=== PATIENT | male | born 1945 | race Caucasian/White ===

== ENCOUNTER 2018-10-05 15:17 | Observation (INO) | payer MEDICARE ==
[2018-10-05] MEDS ORDERED: Mag-Al 1200 mg/1200 mg/30 ML UDCUP PO PRN (16:09)
[2018-10-05] MEDS ORDERED: HYDROcodone/Acetaminophen 5/325 mg Tablet PO PRN ×2 (16:09)
[2018-10-05] MEDS ORDERED: Acetaminophen 500 MG TAB PO PRN (16:09)
[2018-10-05] MEDS ORDERED: Ondansetron PF 4 MG/2 ML Vial IVP PRN (16:09)
[2018-10-05] MEDS ORDERED: Morphine 2 MG/ML SYRINGE SLOW IVP PRN (16:09)
[2018-10-05] MEDS ORDERED: diphenhydrAMINE 25 MG CAP PO PRN (16:09)
[2018-10-05] MEDS ORDERED: Morphine 4 MG/ML VIAL SLOW IVP PRN (16:09)
[2018-10-05] MEDS ORDERED: hydrALAZINE 20 MG/ML VIAL SLOW IVP PRN (16:09)
[2018-10-05] MEDS ORDERED: Docusate 100 MG CAP PO PRN (16:09)
[2018-10-05 16:22] VITALS: BMI 27.6
[2018-10-05] MEDS: cefTRIAXone\\ROCEPHIN 1 GM in Sodium Chloride 0.9% 100 ML IVPB SCH (16:54)
[2018-10-05] MEDS: Sodium Chloride 0.9% 1,000 ML IV SCH (16:54)
[2018-10-05] MEDS ORDERED: Lisinopril 5 MG TAB PO SCH (21:00)
[2018-10-05] MEDS ORDERED: Atorvastatin Calcium 40 MG TAB PO SCH (21:00)
--- NOTE | 2018-10-06 01:34 | HP ---
ADMITTING DIAGNOSES: 1. Right ureteral stone. 2. Urinary tract infection. CHIEF COMPLAINT: "I have a kidney stone." HISTORY OF PRESENT ILLNESS: Mr. Polo is a 73-year-old white male with a history of right lower quadrant and right flank pain, starting approximately 1 to 2 days ago. He initially went to his primary care physician, who ordered labs demonstrating what looked like urinary tract infection. Given the patient's symptoms, he subsequently underwent a CT scan, which demonstrated an 8 mm proximal right ureteral stone with hydronephrosis and perinephric stranding. Due to the concern of a possible urinary tract infection in the presence of ureteral stone, he was sent to see me at the Urology office, where I visited with the patient. There, the patient did not report any fevers or chills, nausea or vomiting, but he still has intermittent flank pain, which is relatively severe, rating at 7 to 8/10 at the nighttime, and currently at 1 or 2/10. He does have a history of radical prostatectomy for prostate cancer in the past approximately 10 years ago. He does not have history of kidney stones, UTIs, or hematuria. ALLERGIES: NONE. CURRENT MEDICATIONS: 1. Aspirin. 2. Atorvastatin. 3. Metoprolol. 4. Lisinopril. 5. Spironolactone. PAST MEDICAL HISTORY: 1. Cataracts. 2. Prostate cancer. 3. Hepatitis. 4. Mitral valve prolapse. 5. Arthritis. PAST SURGICAL HISTORY: 1. Cataract surgery. 2. Radical prostatectomy in 2008. 3. Appendectomy. 4. Tonsillectomy. 5. Mitral heart valve replacement. 6. Hip replacement. FAMILY HISTORY: Significant for mother and father, who have had unspecified types of cancer and a family history of hypertension, but nothing for nephrolithiasis. SOCIAL HISTORY: The patient does not smoke. He denies alcohol abuse or illicit drug use. He is . REVIEW OF SYSTEMS: A 12-point review of systems was reviewed and otherwise negative other than what was commented on the HPI, specifically the right flank and right lower quadrant pain. PHYSICAL EXAMINATION: VITAL SIGNS: Temperature 97.4, pulse 89, respirations 18, blood pressure 114/72, and saturation 97% on room air. GENERAL: No apparent distress, communicating, alert, appears stated age. HEENT: Normocephalic, atraumatic. Pupils are symmetric and round. Sclerae nonicteric. Extraocular movements intact. Trachea midline. Moist mucous membranes. CARDIOVASCULAR: Regular rate and rhythm. Normal S1 and S2. Mild systolic murmur. CHEST: No increased work of breathing. Symmetric expansion of the lungs, clear anteriorly. ABDOMEN: Soft, nontender, and nondistended. No positive bowel sounds. No guarding or rebound at the right lower quadrant. No organomegaly. Mild right CVA tenderness. : Deferred at this time. EXTREMITIES: No clubbing, cyanosis, or edema. MUSCULOSKELETAL: No joint deformities or joint erythema noted. Full range of motion. NEUROLOGIC: Cranial nerves 2 through 12 grossly intact. No focal or sensory motor deficits identified. SKIN: Warm and dry. Good turgor. No rashes or lesions. PSYCHIATRIC: Alert and oriented x3. Appropriate mood and affect. IMAGING: CT from October 05 demonstrates a partially obstructing right proximal ureteral stone, measuring 8 mm with mild to moderate right hydronephrosis and hydroureter with perinephric and periureteral stranding. There is a Bosniak 2 left renal cyst, status post prostatectomy with diverticulosis and vascular calcifications throughout. LABORATORY DATA: Reviewed from patient's primary care doctor. Creatinine is currently 1.37, sodium of 138, white count is 11.5, hemoglobin of 14.1, platelet count of 178. Urinalysis demonstrates 1+ bacteria, 1+ leukocyte esterase, 10 to 15 white cells, 20 to 30 red cells. ASSESSMENT AND PLAN: A 73-year-old white male with a possible urinary tract infection and the presence of a right ureteral stone. The patient has been admitted to the hospital after discussion with the patient previously in the office to perform a cystoscopy with right ureteral stent. The patient has no evidence of sepsis or significant pyelonephritis at this time. Therefore, this case is deemed urgent but not emergent. I will plan to treat the patient with IV ceftriaxone for now, make him n.p.o. after midnight, and take him to the operating room tomorrow for a cystoscopy and right ureteral stent placement. We will then await cultures and plan for 7 days of antibiotic treatment, at which point, we will then return back to the operating room for definitive treatment with either ESWL or ureteroscopy to remove the stone. This can be handled on an outpatient basis subsequently. I have discussed the surgical case with the patient and he has agreed to proceed forward. Job ID: [id number]
[2018-10-06 05:53] LABS: #Basophils 0.1 thou/uL (0.0-0.2); #Eosinphils 0.3 thou/uL (0.0-0.7); #Lymphocytes 2.2 thou/uL (1.20-3.40); #Monocytes 0.9 thou/uL (0.11-0.59); #Neutrophils 4.6 thou/uL (1.40-6.50); %Eosinophils 3.2 % (0.0-10.0); %Lymphocytes 27.1 % (21.0-51.0); %Monocytes 11.1 % (0.0-10.0); %Neutrophils 57.6 % (42.0-75.0); Hemoglobin 11.7 g/dL (14.0-18.0); Mean Corpuscular HGB CONC 32.6 g/dL (32.0-36.0); Mean Corpuscular Hemoglobin 30.6 pg (27.0-31.0); Mean Corpuscular Volume 93.6 fL (78.0-98.0); Mean Platelet Volume 8.4 fL (7.4-10.4); Platelet Count 175 thou/uL (130-400); RBC Distribution Width 12.1 % (11.5-14.5); Red Blood Cell (RBC) Count 3.84 mill/uL (4.70-6.10)
[2018-10-06] MEDS ORDERED: Spironolactone 25 MG TAB PO SCH (08:00)
[2018-10-06] MEDS: Sodium Chloride 0.9% 1,000 ML IV SCH (08:22)
[2018-10-06] MEDS ORDERED: Lisinopril 5 MG TAB PO SCH (09:00)
[2018-10-06] MEDS ORDERED: Aspirin 81 mg Enteric Coated Tablet PO SCH (09:00)
[2018-10-06] MEDS ORDERED: Lidocaine 1% PF 5 ML VIAL ONE (10:25)
[2018-10-06] MEDS ORDERED: PROPOFOL 200 MG/20 ML VIAL ONE (10:25)
[2018-10-06] MEDS ORDERED: Iothalamate Meglumine 60% 50 ML VIAL FS ONE (14:00)
--- NOTE | 2018-10-06 15:14 | RAD ---
EXAM: XR IVP Retrograde PROVIDED CLINICAL HISTORY: Abdominal pain and hematuria. CT examination demonstrates a proximal right ureteral calculus COMPARISON: CT abdomen and pelvis on 10/05/2018 FINDINGS: Single fluoroscopic image from right retrograde urogram submitted for interpretation. Image demonstra chong a double pigtail right ureteral stent in place with proximal portion of the stent overlying the expected location of the right renal collecting system and distal portion overlies expected location urinary bladder. There is a calcification seen adjacent to the proximal ureteral stent at the level of the inferior endplate of the L3 vertebral body likely related to the right ureteral calculus. Surgical clips overlie the pelvis. Right total hip prosthesis is noted in place. Correlation with intraoperative findings is recommended. IMPRESSION: Right renal stent in place with the right ureteral calculus seen at the level of the inferior endplat e L3 vertebral body.
[2018-10-06] MEDS ORDERED: Ondansetron HCl/PF 4 MG/2 ML Vial IVP PRN (15:15)
[2018-10-06 16:48] VITALS: BP 115/75; TEMP 98.9
[2018-10-06] MEDS: cefTRIAXone\\ROCEPHIN 1 GM in Sodium Chloride 0.9% 100 ML IVPB SCH (17:21)
--- NOTE | 2018-10-06 21:31 | OP ---
DATE OF PROCEDURE: 10/06/2018 SERVICE: Urology. PREOPERATIVE DIAGNOSIS: Right ureteral stone and possible urinary tract infection. POSTOPERATIVE DIAGNOSIS: Right ureteral stone and possible urinary tract infection. PROCEDURE PERFORMED: Cystoscopy, right ureteral stent placement. INDICATION FOR PROCEDURE: Mr. Polo is a 73-year-old white male with a history of mitral valve replacement, who comes in with a possible urinary tract infection and a right ureteral stone. Out of concern for sepsis and possible endocarditis, I have elected to go ahead and place a stent. He was admitted to the hospital yesterday, placed on IV antibiotics. He has remained afebrile and his white count is normal today. He is being brought to the operating room for cysto and stent placement after discussion of options, risks, and benefits. DESCRIPTION OF PROCEDURE: After identification of armband and verification of consent, the patient was brought back to the operating room, where he underwent general anesthesia and LMA. He was then placed in dorsal lithotomy position and prepped and draped in usual sterile fashion. After appropriate time-out, a lubricated 22-Austrian rigid cystoscope was introduced per urethra into the bladder. The prostate was surgically absent as expected after his prostatectomy. Both ureters were in their orthotopic location. The right ureter was cannulated with a 0.035 Sensor wire up to the level of renal pelvis. The stone was visible and the wire was able to be navigated by the stone. A 6 x 26 double-J stent was advanced over the Sensor wire up to the level of renal pelvis past the stone. The wire was removed leaving a good curl in the kidney and a good curl in the bladder. The cystoscope was used to drain the bladder and then removed. Of note, there was a pedunculated mass just near the trigone, which may be a remnant prostate tissue or potentially buried suture material that has formed a granuloma. In either case, the patient has been asymptomatic from this, so I do not think anything further needs to be done. It is smooth and round and not indicative of a malignant process. The patient was then awakened and taken to PACU for recovery in stable condition. COMPLICATIONS: None. ESTIMATED BLOOD LOSS: Minimal. RETAINED TUBES AND DRAINS: A 6 x 26 double-J stent on the right. SPECIMENS: None. DISPOSITION: The patient will be discharged home on 7 days of antibiotics. We will then schedule him for either an ESWL or ureteroscopy based on his preference. Job ID: [id number]
== END 2018-10-06 17:00 | disposition home or self-care (01) ==
LOC: SURG B 15:45
PROVIDERS: ADMIT Urology; ATTEND Urology
PROC: 0T9680Z Drainage of Right Ureter with Drainage Device, Via Natural or Artificial Opening Endoscopic (ICD-10-PCS; principal; 2018-10-05)
DX: N20.1 Calculus of ureter (principal); N39.0 Urinary tract infection, site not specified; M19.90 Unspecified osteoarthritis, unspecified site; Z79.82 Long term (current) use of aspirin; Z79.899 Other long term (current) drug therapy; Z95.4 Presence of other heart-valve replacement
CPT/HCPCS: 52332; 74178; 74420; 82565; 85025; 87086; 96361 ×2; 96365; 96375; G0378; G0379; 36415; 99213; G0463; J0696; J2001; J2270; J2704; J3490; Q9961; Q9967

== ENCOUNTER 2018-10-14 11:02 | Day surgery (SDC) | payer MEDICARE ==
[2018-10-13 15:16] VITALS: BMI 27.8
[2018-10-14] MEDS ORDERED: Sodium Chloride 0.9% 100 ML ONE (11:47)
[2018-10-14] MEDS ORDERED: cefTRIAXone\\ROCEPHIN 1 GM VIAL ONE (11:47)
[2018-10-14] MEDS ORDERED: Iothalamate Meglumine 60% 50 ML VIAL FS ONE (12:27)
[2018-10-14] MEDS ORDERED: B & O ONE (12:29)
[2018-10-14] MEDS ORDERED: Fentanyl 100 MCG/2 ML VIAL ONE (13:08)
[2018-10-14] MEDS ORDERED: Glycopyrrolate 0.2 MG/ML 5 ML SYRINGE ONE (13:10)
[2018-10-14] MEDS ORDERED: PROPOFOL 200 MG/20 ML VIAL ONE (13:10)
[2018-10-14] MEDS ORDERED: Rocuronium Bromide 10 MG/ML (10ML VIAL) ONE (13:10)
[2018-10-14] MEDS ORDERED: Ondansetron PF 4 MG/2 ML Vial ONE (13:10)
[2018-10-14] MEDS ORDERED: PHENYLEPHRINE-NS 100 MCG/ML 10 ML SYRINGE ONE (13:10)
[2018-10-14] MEDS ORDERED: ePHEDrine 50 MG/ML VIAL ONE (13:10)
[2018-10-14] MEDS ORDERED: Lidocaine 1% PF 5 ML VIAL ONE (13:10)
[2018-10-14] MEDS ORDERED: Dexamethasone 20 MG/5 ML VIAL ONE (13:10)
[2018-10-14 13:17] LABS: Anion Gap 13 mmol/L (10-20); BUN (Urea Nitrogen) 18 mg/dL (8.4-25.7); Calc. Creatinine Clearance 72 mL/min (70-130); Calcium 9.4 mg/dL (7.8-10.44); Carbon Dioxide 27 mmol/L (23-31); Chloride 103 mmol/L (98-107); Estimated GFR-MDRD 65; Glucose 97 mg/dL (83-110); Potassium 4.6 mmol/L (3.5-5.1); Sodium 138 mmol/L (136-145)
[2018-10-14] MEDS ORDERED: Phenazopyridine HCl 97.5 MG TABLET ONE (15:02)
[2018-10-14] MEDS ORDERED: Oxybutynin 5 MG TAB ONE (15:07)
--- NOTE | 2018-10-14 18:25 | OP ---
DATE OF PROCEDURE: 10/14/2018 SERVICE: Urology. PREOPERATIVE DIAGNOSIS: Right ureteral stone. POSTOPERATIVE DIAGNOSIS: Right ureteral stone. PROCEDURES PERFORMED: Right ureteroscopy, laser lithotripsy, basket extraction of stone, and replacement of a 6 x 26 double-J stent. INDICATION FOR PROCEDURE: Mr. Polo is a 73-year-old white male, who initially presented with concerns of urinary tract infection with right ureteral stone. He underwent emergent right ureteral stenting, but subsequently was found not to have urinary tract infection. His antibiotics were stopped, and we elected to proceed forward with ureteroscopy as he does have an 8 mm stone, which is extremely unlikely to pass. Risks and benefits of the surgery were discussed and he has agreed to proceed forward. DESCRIPTION OF PROCEDURE: After identification of armband and verification of consent, the patient was brought back to the operating room, where he underwent general anesthesia with endotracheal intubation. He was then placed in dorsal lithotomy position, and prepped and draped in usual sterile fashion. After appropriate time-out, a lubricated 22-Gabonese rigid cystoscope was introduced per urethra into the bladder. The prostate was surgically absent as previously noted. The right stent was seen in place emanating from the right ureteral orifice. This was grasped with flexible graspers and removed to the level of the meatus. A 0.035 Sensor wire was then advanced through the stent at the level of the stone and was able to be manipulated past the stone into the kidney. The stent was then removed and discarded. A dual-lumen catheter was advanced over the Sensor wire up to the level of the mid ureter, and an Amplatz Superstiff wire was then passed through the second lumen up to the level of the kidney. The dual-lumen was then removed, and the Sensor wire affixed to the drapes as a safety wire. An 11/13 x 36 cm ureteral access sheath was used to place into the distal ureter over the Superstiff wire and advanced with ease up to the level of the stone, which was radiopaque. Inner cannula and Superstiff wire were then removed, leaving the outer sheath and Sensor wire in place as a safety wire. A flexible digital ureteroscope was then passed through the ureteral access sheath into the proximal ureter, where the stone was encountered. A 365 micron laser fiber was then used to fragment the stone into small pieces, and then a 1.9-Gabonese ZeroTip Nitinol basket was used to extract all pieces until there were no pieces remaining that were over a millimeter in size. Almost all stones were removed. There was a fairly significant defect at the site of where the stone was impacted, resulting in denuding of the urothelium. I felt that it would be better to leave the stent in for a little bit longer to allow for re-epithelialization and healing of this area to avoid stricture formation. Pullback ureteroscopy was employed and no additional stones were seen within the ureter. The sheath and the ureteroscope were then removed, and cystoscope was then backloaded over the Sensor wire back into the bladder. A 6 x 26 double-J stent was advanced over the Sensor wire up to the level of the kidney. The wire was then removed leaving a partial curl in the kidney and a good curl in the bladder. The bladder was then emptied, and the cystoscope was removed. There was no string left attached to the stent. The patient was then awakened, taken to PACU for recovery in stable condition after B and O suppository was placed in his rectum. COMPLICATIONS: None. ESTIMATED BLOOD LOSS: Minimal. RETAINED TUBES AND DRAINS: A 6 x 26 double-J stent on the right. SPECIMEN: Stone for stone analysis. DISPOSITION: The patient will be discharged home and follow up with me in approximately 1 week for cysto stent removal. Job ID: [id number]
[2018-10-19 16:11] LABS: CA Oxalate Monohydrate 95 % (.); Color Brown (.)
== END 2018-10-14 16:50 | disposition home or self-care (01) ==
LOC: SDC 11:02
PROVIDERS: ATTEND Urology
PROC: 0TF68ZZ Fragmentation in Right Ureter, Via Natural or Artificial Opening Endoscopic (ICD-10-PCS; principal; 2018-10-14)
PROC: 0T768DZ Dilation of Right Ureter with Intraluminal Device, Via Natural or Artificial Opening Endoscopic (ICD-10-PCS; 2018-10-14)
DX: N20.1 Calculus of ureter (principal); Z79.82 Long term (current) use of aspirin; Z79.899 Other long term (current) drug therapy; Z85.46 Personal history of malignant neoplasm of prostate
CPT/HCPCS: 52356; 76000; 80048; 82365; 88300; 93005; C1769; 36415; 93010; J0696; J1100; J2001; J2405; J2704; J3010; J3490; Q9961

== ENCOUNTER 2018-11-30 10:01 | Outpatient (CLI) | payer MEDICARE ==
--- NOTE | 2018-11-30 10:35 | ULT ---
Bilateral renal ultrasound CLINICAL INDICATION: History of prostate cancer COMPARISON: None FINDINGS: Right kidney: Small exophytic cyst measuring slightly greater than 1.2 cm is present, inferiorly. No hydronephrosis or solid renal lesion. Left kidney: 1.7 cm cyst at the lower pole. No hydronephrosis or solid renal lesion. Urinary bladder: Normal IMPRESSION: Bilateral renal cysts.
== END 2018-11-30 10:02 | disposition home or self-care (01) ==
LOC: BICULT 10:01
PROVIDERS: ATTEND Urology
DX: C61 Malignant neoplasm of prostate (principal); N28.1 Cyst of kidney, acquired
CPT/HCPCS: 76770